=== PATIENT | male | born 1945 | race Caucasian/White ===

== ENCOUNTER 2022-06-20 19:37 | Observation (INO) ==
[2022-06-20 20:48] LABS: Basophils % 0.4 %; Eosinophils % 0.4 %; Hematocrit 43.6 % (37.5-50.1); Hemoglobin 14.5 g/dL (12.9-16.9); Immature Granulocytes % 1.8 % (0-4); Lymphocytes # 1.1 K/mcL (0.6-4.6); Lymphocytes % 16.1 %; Mean Corpuscular HGB Conc 33.3 g/dL (31.6-35.5); Mean Corpuscular Hemoglobin 29.3 pg (28.0-33.3); Mean Corpuscular Volume 88.1 fL (83.0-100.0); Mean Platelet Volume 9.6 fL (9.4-12.4); Monocytes # 1.1 K/mcL (0.0-1.3); Monocytes % 16.7 %; Neutrophils # 4.4 K/mcL (1.6-8.9); Platelet Count 317 K/mcL (140-400); Red Blood Count 4.95 M/mcL (4.19-5.50); Red Cell Distribution Width 13.7 % (11.5-14.5); Segmented Neutrophils % 64.6 %; White Blood Count 6.8 K/mcL (4.3-11.1)
[2022-06-20 21:07] LABS: Platelet Estimate Normal (Normal)
[2022-06-20 21:40] LABS: BUN/Creatinine Ratio 25 (6-26); Blood Urea Nitrogen 27 mg/dL (8-23); Calcium 9.1 mg/dL (8.6-10.3); Carbon Dioxide 17 mEq/L (23-29); Chloride 104 mEq/L (98-107); Glucose 121 mg/dL (70-105); Osmolality,Calculated 284 (280-300); Potassium 4.1 mEq/L (3.5-5.1); Sodium 134 mEq/L (136-145); Troponin I < 0.03 ng/mL (< 0.04)
[2022-06-21 00:23] LABS: Influenza A PCR Negative (Negative); Influenza B PCR Negative (Negative); Resp. Syncytial Virus PCR Negative (Negative)
[2022-06-21 00:24] LABS: SARS-CoV-2 by PCR (In House) Positive (Negative)
[2022-06-21 01:49] LABS: Bilirubin,Urine Negative (Negative); Blood,Urine Negative (Negative); Clarity,Urine Clear (Clear); Color,Urine Light-Yellow (Yellow); Glucose,Urine (UA) Normal (Normal); Ketones,Urine Negative (Negative); Leukocyte Esterase,Urine Negative (Negative); Nitrite,Urine Negative (Negative); PH,Urine 5.5 pH Units (5.0-8.0); Protein,Urine Trace mg/dL (Neg-Trace); Specific Gravity,Urine 1.024 (1.010-1.025); Urobilinogen,Urine Normal (Normal)
[2022-06-21] MEDS ORDERED: Naloxone 0.4 MG/ML INJ IVP PRN (04:24)
[2022-06-21] MEDS ORDERED: Ondansetron 4 MG/2 ML VIAL IVP PRN (04:24)
[2022-06-21] MEDS ORDERED: Acetaminophen 325 MG TABLET PO PRN (04:24)
[2022-06-21] MEDS ORDERED: Melatonin 3 MG TABLET PO PRN (04:24)
[2022-06-21] MEDS ORDERED: *HR* HYDROcodone/Acet 5/325 mg TABLET PO PRN (04:24)
[2022-06-21] MEDS ORDERED: Benzonatate 100 MG CAPSULE PO PRN (04:31)
[2022-06-21] MEDS ORDERED: D5% in Water 1,000 ML IVC PRN (06:17)
[2022-06-21] MEDS ORDERED: Dextrose Gel 15 GM/37.5 ML TUBE PO PRN ×2 (06:17)
[2022-06-21] MEDS ORDERED: *HR* Dextrose 50 % in Water (Syg) 50 ML SYRINGE IVP PRN (06:17)
[2022-06-21] MEDS: Ipratropium 1 PUFF INHALER IH SCH ×4 (08:07→20:28)
[2022-06-21 08:33] LABS: Basophils # 0.1 K/mcL (0.0-0.2); Basophils % 0.6 %; Eosinophils % 0.2 %; Hematocrit 42.6 % (37.5-50.1); Hemoglobin 14.2 g/dL (12.9-16.9); Immature Granulocytes % 1.1 % (0-4); Lymphocytes # 1.5 K/mcL (0.6-4.6); Lymphocytes % 16.4 %; Mean Corpuscular HGB Conc 33.3 g/dL (31.6-35.5); Mean Corpuscular Hemoglobin 29.4 pg (28.0-33.3); Mean Corpuscular Volume 88.2 fL (83.0-100.0); Mean Platelet Volume 9.5 fL (9.4-12.4); Monocytes # 1.1 K/mcL (0.0-1.3); Neutrophils # 6.3 K/mcL (1.6-8.9); Platelet Count 272 K/mcL (140-400); Red Blood Count 4.83 M/mcL (4.19-5.50); Red Cell Distribution Width 13.8 % (11.5-14.5); Segmented Neutrophils % 69.7 %; White Blood Count 9.1 K/mcL (4.3-11.1)
[2022-06-21 08:36] LABS: VBG HCO3 22 mEq/L (21-27); VBG PCO2 31 mmHg (41-51); VBG PH 7.45 pH Units (7.32-7.42); VBG PO2 114 mmHg (25-50)
[2022-06-21 08:44] LABS: INR 1.1; Prothrombin Time 12.2 Seconds (9.4-12.1)
[2022-06-21 08:46] LABS: Activated Partial Thrombo Time 31.6 Seconds (26.0-36.0)
[2022-06-21 08:51] LABS: Albumin/Globulin Ratio 1.4 (1.1-2.2); Bilirubin,Total 0.5 mg/dL (0.3-1.0); Globulin 2.9 g/dL (2.4-3.5); Magnesium 1.9 mg/dL (1.6-2.6); Phosphorous 3.5 mg/dL (2.7-4.5); Total Protein 6.9 g/dL (6.4-8.9)
[2022-06-21] MEDS ORDERED: predniSONE 20 MG TABLET PO SCH (09:00)
[2022-06-21] MEDS: Multivit/Ca/Min/Fe/FA 1 TAB TABLET PO SCH (09:56)
[2022-06-21] MEDS: Chlorhexidine Rinse 15 ML MOUTHWASH MM SCH ×2 (09:56→20:24)
[2022-06-21] MEDS: Loratadine 10 MG TABLET PO SCH (09:56)
[2022-06-21] MEDS: Budesonide/Formoterol 160/4.5 1 PUFF INH IH SCH ×2 (11:24→20:27)
[2022-06-21] MEDS: Fluticasone Propionate Nasal 50 MCG/SPRAY BOTTLE NS SCH (11:47)
[2022-06-21] MEDS: Aspirin 81 MG TAB.CHEW PO SCH (14:27)
[2022-06-21] MEDS: Furosemide 20 MG TABLET PO SCH (14:27)
[2022-06-21] MEDS: Benzonatate 100 MG CAPSULE PO SCH ×2 (17:49→20:24)
[2022-06-22] MEDS: Ipratropium 1 PUFF INHALER IH SCH ×7 (00:31→23:30)
[2022-06-22 04:03] LABS: Basophils % 0.1 %; Hemoglobin 13.3 g/dL (12.9-16.9); Immature Granulocytes % 0.6 % (0-4); Lymphocytes # 1.5 K/mcL (0.6-4.6); Lymphocytes % 15.5 %; Mean Corpuscular HGB Conc 32.4 g/dL (31.6-35.5); Mean Corpuscular Volume 89.3 fL (83.0-100.0); Mean Platelet Volume 9.6 fL (9.4-12.4); Monocytes # 0.9 K/mcL (0.0-1.3); Monocytes % 9.4 %; Neutrophils # 7.3 K/mcL (1.6-8.9); Platelet Count 291 K/mcL (140-400); Red Blood Count 4.59 M/mcL (4.19-5.50); Red Cell Distribution Width 13.9 % (11.5-14.5); Segmented Neutrophils % 74.4 %; White Blood Count 9.8 K/mcL (4.3-11.1)
[2022-06-22 04:23] LABS: Calcium 8.7 mg/dL (8.6-10.3); Magnesium 2.1 mg/dL (1.6-2.6); Phosphorous 2.2 mg/dL (2.7-4.5); Potassium 4.3 mEq/L (3.5-5.1)
[2022-06-22] MEDS: *HR* Enoxaparin 40 MG/0.4 ML SYRINGE SQ SCH (05:03)
[2022-06-22] MEDS: Budesonide/Formoterol 160/4.5 1 PUFF INH IH SCH ×2 (07:54→20:37)
[2022-06-22] MEDS: Loratadine 10 MG TABLET PO SCH (09:03)
[2022-06-22] MEDS: Benzonatate 100 MG CAPSULE PO SCH ×3 (09:03→20:38)
[2022-06-22] MEDS: Chlorhexidine Rinse 15 ML MOUTHWASH MM SCH ×2 (09:03→20:37)
[2022-06-22] MEDS: Multivit/Ca/Min/Fe/FA 1 TAB TABLET PO SCH (09:03)
[2022-06-22] MEDS: Dexamethasone Sodium Phos/PF 10 MG/ML VIAL IVP SCH (09:03)
[2022-06-22] MEDS: Furosemide 20 MG TABLET PO SCH (09:03)
[2022-06-22] MEDS: Aspirin 81 MG TAB.CHEW PO SCH (09:03)
[2022-06-23 00:12] VITALS: TEMP 97.8
[2022-06-23] MEDS: Ipratropium 1 PUFF INHALER IH SCH ×3 (04:18→11:02)
[2022-06-23] MEDS: *HR* Enoxaparin 40 MG/0.4 ML SYRINGE SQ SCH (06:20)
[2022-06-23 07:34] LABS: Basophils % 0.2 %; Eosinophils % 0.1 %; Hematocrit 39.4 % (37.5-50.1); Hemoglobin 12.9 g/dL (12.9-16.9); Immature Granulocytes % 0.7 % (0-4); Lymphocytes # 2.1 K/mcL (0.6-4.6); Mean Corpuscular HGB Conc 32.7 g/dL (31.6-35.5); Mean Corpuscular Hemoglobin 29.5 pg (28.0-33.3); Mean Platelet Volume 9.7 fL (9.4-12.4); Monocytes # 0.9 K/mcL (0.0-1.3); Monocytes % 6.1 %; Neutrophils # 10.9 K/mcL (1.6-8.9); Platelet Count 288 K/mcL (140-400); Red Blood Count 4.38 M/mcL (4.19-5.50); Red Cell Distribution Width 13.9 % (11.5-14.5); Segmented Neutrophils % 77.9 %
[2022-06-23] MEDS: Budesonide/Formoterol 160/4.5 1 PUFF INH IH SCH (07:47)
[2022-06-23 07:49] LABS: Calcium 8.5 mg/dL (8.6-10.3); Phosphorous 3.5 mg/dL (2.7-4.5); Potassium 4.2 mEq/L (3.5-5.1)
[2022-06-23 10:19] VITALS: BP 189/73; PULSE 73
[2022-06-23] MEDS: Multivit/Ca/Min/Fe/FA 1 TAB TABLET PO SCH (10:20)
[2022-06-23] MEDS: Aspirin 81 MG TAB.CHEW PO SCH (10:20)
[2022-06-23] MEDS: Chlorhexidine Rinse 15 ML MOUTHWASH MM SCH (10:20)
[2022-06-23] MEDS: Dexamethasone Sodium Phos/PF 10 MG/ML VIAL IVP SCH (10:20)
[2022-06-23] MEDS: Benzonatate 100 MG CAPSULE PO SCH (10:20)
[2022-06-23] MEDS: Furosemide 20 MG TABLET PO SCH (10:20)
[2022-06-23] MEDS: Loratadine 10 MG TABLET PO SCH (10:20)
[2022-06-23] MEDS: Fluticasone Propionate Nasal 50 MCG/SPRAY BOTTLE NS SCH ×2 (10:21→10:23)
[2022-06-23 11:04] VITALS: O2SAT 89
== END 2022-06-23 13:00 ==
LOC: EMEROOARM 19:37 → 3NENU 19:37 → SUATTDRO 06-21 13:17 → 3NENU 06-21 14:53
PROVIDERS: ADMIT Internal Medicine; ATTEND Internal Medicine

== ENCOUNTER 2022-06-27 15:29 | Inpatient (IN) ==
[2022-06-27] MEDS ORDERED: Iopamidol - 370 500 ML MLS IVP ONE (15:58)
[2022-06-27 16:46] LABS: Basophils # 0.1 K/mcL (0.0-0.2); Basophils % 0.5 %; Hematocrit 42.4 % (37.5-50.1); Hemoglobin 14.3 g/dL (12.9-16.9); Immature Granulocytes % 1.6 % (0-4); Lymphocytes # 1.1 K/mcL (0.6-4.6); Lymphocytes % 11.4 %; Mean Corpuscular HGB Conc 33.7 g/dL (31.6-35.5); Mean Corpuscular Hemoglobin 29.4 pg (28.0-33.3); Mean Corpuscular Volume 87.2 fL (83.0-100.0); Mean Platelet Volume 9.6 fL (9.4-12.4); Monocytes # 1.1 K/mcL (0.0-1.3); Monocytes % 11.1 %; Neutrophils # 7.2 K/mcL (1.6-8.9); Platelet Count 343 K/mcL (140-400); Red Blood Count 4.86 M/mcL (4.19-5.50); Red Cell Distribution Width 13.8 % (11.5-14.5); Segmented Neutrophils % 75.4 %; White Blood Count 9.6 K/mcL (4.3-11.1)
[2022-06-27 17:03] LABS: Albumin 3.9 g/dL (3.5-5.7); Albumin/Globulin Ratio 1.3 (1.1-2.2); Bilirubin,Direct 0.1 mg/dL (0.0-0.2); Bilirubin,Indirect 0.5 mg/dL (0.0-1.0); Bilirubin,Total 0.6 mg/dL (0.3-1.0); Calcium 8.9 mg/dL (8.6-10.3); Globulin 2.9 g/dL (2.4-3.5); Potassium 3.9 mEq/L (3.5-5.1); Total Protein 6.8 g/dL (6.4-8.9); Troponin I 0.03 ng/mL (< 0.04)
[2022-06-27 17:13] LABS: Bacteria,Urine Few per hpf (None-Few); Bilirubin,Urine Negative (Negative); Blood,Urine Small (Negative); Clarity,Urine Turbid (Clear); Color,Urine Yellow (Yellow); Glucose,Urine (UA) Normal (Normal); Granular Casts,Urine Few per lpf (None Seen); Hyaline Casts,Urine Moderate per lpf (None Seen); Ketones,Urine Negative (Negative); Leukocyte Esterase,Urine Large (Negative); Mucus,Urine Few per lpf (None-Few); Nitrite,Urine Positive (Negative); Protein,Urine 30 mg/dL (Neg-Trace); Urobilinogen,Urine Normal (Normal); WBC,Urine TNTC per hpf (0-3)
[2022-06-27] MEDS ORDERED: cefTRIAXone 1,000 MG in Water for inj. (sterile) 10 ML IVP ONE (17:24)
[2022-06-27] MEDS ORDERED: Ondansetron 4 MG/2 ML VIAL IVP PRN (19:29)
[2022-06-27] MEDS ORDERED: Naloxone 0.4 MG/ML INJ IVP PRN (19:29)
[2022-06-27] MEDS ORDERED: polyethylene glycoL 3350 17 GM POWD.PACK PO PRN (22:35)
[2022-06-27] MEDS ORDERED: Benzonatate 100 MG CAPSULE PO PRN (22:35)
[2022-06-28 05:26] LABS: Basophils # 0.1 K/mcL (0.0-0.2); Basophils % 0.6 %; Eosinophils # 0.1 K/mcL (0.0-0.6); Eosinophils % 0.8 %; Hematocrit 42.6 % (37.5-50.1); Hemoglobin 14.2 g/dL (12.9-16.9); Immature Granulocytes % 2.2 % (0-4); Lymphocytes # 1.7 K/mcL (0.6-4.6); Lymphocytes % 17.5 %; Mean Corpuscular HGB Conc 33.3 g/dL (31.6-35.5); Mean Corpuscular Volume 86.9 fL (83.0-100.0); Mean Platelet Volume 9.4 fL (9.4-12.4); Monocytes # 1.1 K/mcL (0.0-1.3); Monocytes % 10.8 %; Neutrophils # 6.6 K/mcL (1.6-8.9); Platelet Count 326 K/mcL (140-400); Red Cell Distribution Width 13.9 % (11.5-14.5); Segmented Neutrophils % 68.1 %; White Blood Count 9.7 K/mcL (4.3-11.1)
[2022-06-28 05:33] LABS: INR 1.1
[2022-06-28 05:45] LABS: Calcium 8.9 mg/dL (8.6-10.3); Magnesium 1.9 mg/dL (1.6-2.6); Potassium 3.6 mEq/L (3.5-5.1)
[2022-06-28] MEDS ORDERED: Aspirin 81 MG TAB.CHEW PO SCH (09:00)
[2022-06-28] MEDS ORDERED: Aspirin 325 MG TABLET PO ONE (09:41)
[2022-06-28] MEDS: *HR* Enoxaparin 40 MG/0.4 ML SYRINGE SQ SCH (11:19)
[2022-06-28] MEDS: cefTRIAXone 1,000 MG in 0.9 % Sodium Chloride Mini Bag 100 ML IVPB SCH (11:20)
[2022-06-28] MEDS: Cholecalciferol (D-3) 1,000 UNIT (25MCG) TABLET PO SCH (11:20)
[2022-06-28] MEDS ORDERED: Thiamine (B-1) 500 MG in 0.9 % Sodium Chloride 50 ML IVPB STA (14:09)
[2022-06-28] MEDS: Acetaminophen 325 MG TABLET PO PRN (20:34)
[2022-06-28] MEDS: Thiamine (B-1) 500 MG in 0.9 % Sodium Chloride 50 ML IVPB SCH (20:38)
[2022-06-29 05:03] LABS: Basophils # 0.1 K/mcL (0.0-0.2); Basophils % 0.8 %; Eosinophils # 0.2 K/mcL (0.0-0.6); Eosinophils % 2.2 %; Hemoglobin 13.5 g/dL (12.9-16.9); Immature Granulocytes % 3.2 % (0-4); Lymphocytes # 2.3 K/mcL (0.6-4.6); Lymphocytes % 32.1 %; Mean Corpuscular HGB Conc 32.9 g/dL (31.6-35.5); Mean Corpuscular Hemoglobin 29.3 pg (28.0-33.3); Mean Corpuscular Volume 89.1 fL (83.0-100.0); Mean Platelet Volume 9.7 fL (9.4-12.4); Monocytes # 0.9 K/mcL (0.0-1.3); Monocytes % 12.3 %; Neutrophils # 3.6 K/mcL (1.6-8.9); Platelet Count 313 K/mcL (140-400); Segmented Neutrophils % 49.4 %; White Blood Count 7.3 K/mcL (4.3-11.1)
[2022-06-29 05:23] LABS: Calcium 8.2 mg/dL (8.6-10.3); Potassium 3.7 mEq/L (3.5-5.1)
[2022-06-29] MEDS: Aspirin 81 MG TAB.CHEW PO SCH (10:08)
[2022-06-29] MEDS: cefTRIAXone 1,000 MG in 0.9 % Sodium Chloride Mini Bag 100 ML IVPB SCH (10:08)
[2022-06-29] MEDS: *HR* Enoxaparin 40 MG/0.4 ML SYRINGE SQ SCH (10:08)
[2022-06-29] MEDS: Cholecalciferol (D-3) 1,000 UNIT (25MCG) TABLET PO SCH (10:08)
[2022-06-29] MEDS: Thiamine (B-1) 500 MG in 0.9 % Sodium Chloride 50 ML IVPB SCH ×3 (10:21→19:52)
[2022-06-29] MEDS ORDERED: cephALEXin 500 MG CAPSULE PO SCH (15:00)
[2022-06-29] MEDS: cephALEXin 500 MG CAPSULE PO SCH (18:40)
[2022-06-30] MEDS: cephALEXin 500 MG CAPSULE PO SCH ×3 (09:39→19:48)
[2022-06-30] MEDS: Cholecalciferol (D-3) 1,000 UNIT (25MCG) TABLET PO SCH (09:39)
[2022-06-30] MEDS: Aspirin 81 MG TAB.CHEW PO SCH (09:39)
[2022-06-30] MEDS: *HR* Enoxaparin 40 MG/0.4 ML SYRINGE SQ SCH (09:39)
[2022-06-30] MEDS: Acetaminophen 325 MG TABLET PO PRN (09:39)
[2022-06-30] MEDS: Thiamine (B-1) 500 MG in 0.9 % Sodium Chloride 50 ML IVPB SCH ×2 (09:47→16:14)
[2022-07-01] MEDS: Cholecalciferol (D-3) 1,000 UNIT (25MCG) TABLET PO SCH (10:39)
[2022-07-01] MEDS: Aspirin 81 MG TAB.CHEW PO SCH (10:39)
[2022-07-01] MEDS: cephALEXin 500 MG CAPSULE PO SCH ×3 (10:39→21:12)
[2022-07-01] MEDS: Thiamine (B-1) 100 MG TABLET PO SCH (10:39)
[2022-07-01] MEDS: *HR* Enoxaparin 40 MG/0.4 ML SYRINGE SQ SCH (10:40)
[2022-07-02] MEDS: Cholecalciferol (D-3) 1,000 UNIT (25MCG) TABLET PO SCH (09:10)
[2022-07-02] MEDS: cephALEXin 500 MG CAPSULE PO SCH ×3 (09:10→20:41)
[2022-07-02] MEDS: *HR* Enoxaparin 40 MG/0.4 ML SYRINGE SQ SCH (09:10)
[2022-07-02] MEDS: Aspirin 81 MG TAB.CHEW PO SCH (09:10)
[2022-07-02] MEDS: Thiamine (B-1) 100 MG TABLET PO SCH (09:10)
[2022-07-03 07:35] VITALS: O2SAT 93
[2022-07-03] MEDS: *HR* Enoxaparin 40 MG/0.4 ML SYRINGE SQ SCH (09:24)
[2022-07-03] MEDS: Cholecalciferol (D-3) 1,000 UNIT (25MCG) TABLET PO SCH (09:24)
[2022-07-03] MEDS: Thiamine (B-1) 100 MG TABLET PO SCH (09:24)
[2022-07-03] MEDS: cephALEXin 500 MG CAPSULE PO SCH ×2 (09:24→16:11)
[2022-07-03] MEDS: Aspirin 81 MG TAB.CHEW PO SCH (09:24)
[2022-07-03 12:00] VITALS: BP 136/86; PULSE 68; TEMP 98.4
[2022-07-03] MEDS ORDERED: Moderna COVID-19 Vac ,BIVALENT BOOSTER 50 MCG/0.5 ML VIAL IM ONE (15:15)
== END 2022-07-03 18:34 | DRG 689 ==
LOC: EMEROOARM 15:29 → 2ANU 15:29 → SUATTDRO 19:38 → 2ANU 20:05 → SUATTDRO 06-29 14:59
PROVIDERS: ADMIT Student in an Organized Health Care Education/Training Program; ATTEND Hospitalist